=== PATIENT | female | born 1995 | race African-American/Black ===

== ENCOUNTER 2018-12-03 11:16 | Emergency (ER) | payer MEDICAID ==
[2018-12-03 11:55] LABS: #Basophils 0.1 thou/uL (0.0-0.2); #Eosinphils 0.3 thou/uL (0.0-0.7); #Lymphocytes 2.4 thou/uL (1.20-3.40); #Monocytes 0.6 thou/uL (0.11-0.59); #Neutrophils 6.5 thou/uL (1.40-6.50); %Basophils 0.8 % (0.0-1.0); %Eosinophils 2.9 % (0.0-10.0); %Lymphocytes 24.3 % (21.0-51.0); %Monocytes 5.9 % (0.0-10.0); Hemoglobin 11.6 g/dL (12.0-16.0); Mean Corpuscular Hemoglobin 25.8 pg (27.0-31.0); Mean Corpuscular Volume 75.8 fL (78.0-98.0); Mean Platelet Volume 9.8 fL (7.4-10.4); Platelet Count 197 thou/uL (130-400); RBC Distribution Width 13.5 % (11.5-14.5); White Blood Cell (WBC) Count 9.8 thou/uL (4.8-10.8)
[2018-12-03 11:57] LABS: Bilirubin Negative (Negative); Blood, Urine Negative (Negative); Clarity Clear (Clear); Glucose, Urine (Dipstick) Normal (Negative); Leukocyte 500 Leu/uL (Negative); Nitrite Negative (Negative); Pregnancy Test - Urine (BHCG) POSITIVE (Negative); Pregu Control Background? CLEAR/WHITE (CLR/WHITE); Pregu Control Bar Appear? YES (CONTROL BAR); Protein, Urine (Dipstick) Negative (Neg-Trace); Specific Gravity 1.015 (1.002-1.036); Urobilinogen Normal mg/dL (Less than 2)
[2018-12-03 11:58] LABS: Bacteria/HPF 1+ HPF (None Seen)
--- NOTE | 2018-12-03 13:26 | ULT ---
TRANSVAGINAL OBSTETRICAL ULTRASOUND: 12/03/18 INDICATION: History of positive . FINDINGS: There is a single live intrauterine gestation with cardiac activity noted at 116 beats per minute. Sm all yolk sac and pole is identified. The pole measures 0.58 cm giving an estimated gestat ional age of 6 weeks and 3 days. The mean sac diameter was 2.16 cm giving an estimated gestational ag e of 7 weeks and 1 day. Average gestational age is 6 weeks and 6 days. Estimated due date is 07/23/19. Clinical age is 7 weeks and 2 days. Estimated due date is 07/20/19. There is small suspected 8 mm subchorionic hemorrhage seen along the inferior and anterior aspect of the gestational sac that may reflect hemorrhage related to implantation. The left ovary measures 3.5 x 1.6 x 2.9 cm. The right ovary measures 4.4 x 3.2 x 3.8 cm. The uterus m easures 12.3 x 6.1 x 7.5 cm. There is a 2.6 cm cyst within the right ovary. IMPRESSION: 1. Single live intrauterine gestation of underdetermined viability. 2. Small subchorionic hemorrhage seen within the inferior anterior aspect of the gestational sac could be related to implantation. Continue clinical and sonographic follow-up is recommended. 3. Right ovarian cyst. POS: TPC
[2018-12-03] MEDS ORDERED: Acetaminophen 500 MG TAB ONE (13:31)
[2018-12-04 18:34] LABS: Chlamydia by PCR DETECTED (NotDetected); GC by PCR Not Detected (NotDetected)
== END 2018-12-03 14:41 | disposition home or self-care (01) ==
LOC: ERS 11:16
DX: O20.0 Threatened abortion (principal); O23.41 Unspecified infection of urinary tract in pregnancy, first trimester; Z3A.01 Less than 8 weeks gestation of pregnancy
CPT/HCPCS: 36415; 76856; 81003; 81015; 81025; 84702; 85025; 86850; 86900; 86901; 87480; 87491; 87510; 87591; 87660

== ENCOUNTER 2018-12-24 02:28 | Emergency (ER) | payer OTHER, SELFPAY ==
[2018-12-24] MEDS ORDERED: Ondansetron PF 4 MG/2 ML Vial ONE ×2 (02:52→03:58)
[2018-12-24] MEDS ORDERED: Morphine 4 MG/ML VIAL ONE ×2 (02:52→03:58)
[2018-12-24 03:29] LABS: #Basophils 0.1 thou/uL (0.0-0.2); #Eosinphils 0.5 thou/uL (0.0-0.7); #Lymphocytes 3.3 thou/uL (1.20-3.40); #Monocytes 0.9 thou/uL (0.11-0.59); #Neutrophils 9.2 thou/uL (1.40-6.50); %Basophils 0.9 % (0.0-1.0); %Eosinophils 3.7 % (0.0-10.0); %Lymphocytes 23.7 % (21.0-51.0); %Monocytes 6.2 % (0.0-10.0); %Neutrophils 65.6 % (42.0-75.0); Hemoglobin 11.8 g/dL (12.0-16.0); Mean Corpuscular Hemoglobin 25.5 pg (27.0-31.0); Mean Platelet Volume 9.6 fL (7.4-10.4); Platelet Count 208 thou/uL (130-400); RBC Distribution Width 13.4 % (11.5-14.5); Red Blood Cell (RBC) Count 4.64 mill/uL (4.20-5.40); White Blood Cell (WBC) Count 14.1 thou/uL (4.8-10.8)
[2018-12-24 03:51] LABS: ALT (SGPT) 8 U/L (8-55); AST (SGOT) 15 U/L (5-34); Albumin 3.9 g/dL (3.5-5.0); Alkaline Phosphatase 37 U/L (40-110); Anion Gap 14 mmol/L (10-20); BUN (Urea Nitrogen) 5 mg/dL (7.0-18.7); Bilirubin, Total 0.3 mg/dL (0.2-1.2); Calc. Creatinine Clearance 0 mL/min (70-130); Carbon Dioxide 18 mmol/L (22-29); Chloride 104 mmol/L (98-107); Estimated GFR-MDRD Greater than 90; Globulin 3.1 g/dL (2.4-3.5); Glucose 110 mg/dL (70-105); Lipase 24 U/L (8-78); Potassium 3.1 mmol/L (3.5-5.1); Sodium 133 mmol/L (136-145)
[2018-12-24 05:46] LABS: Bilirubin Negative (Negative); Blood, Urine Negative (Negative); Clarity Clear (Clear); Glucose, Urine (Dipstick) Normal (Negative); Leukocyte 25 Leu/uL (Negative); Nitrite Negative (Negative); Protein, Urine (Dipstick) 10 mg/dL (Neg-Trace); RBC/HPF 0-3 HPF (0-3); Urobilinogen Normal mg/dL (Less than 2)
[2018-12-24 05:47] LABS: Bacteria/HPF 1+ HPF (None Seen)
--- NOTE | 2018-12-24 07:13 | ULT ---
PRELIMINARY REPORT/[facility]/EMERGENCY AFTER HOURS PROCEDURE: PROCEDURE INFORMATION: Exam: US Abdomen Limited, Appendix Exam date and time: 12/24/2018 3:35 AM Clinical history: 23 years old, female; Nausea and vomiting; Abdominal pain; Localized; Right lower q uadrant (rlq); TECHNIQUE: Imaging protocol: Real-time ultrasound of the abdomen with image documentation. Examination was focus ed on the appendix. COMPARISON: US Gallbladder RUQ 12/24/2018 3:23 AM FINDINGS: Appendix: The appendix is not visible. Uterus: There is an intrauterine gestation. Gestation: The heart rate is 157 bpm. Ovaries: The right ovary measures 5.9 x 3.1 x 4.7 cm. It contains simple cysts measuring up to 2.4 x 2.3 x 2.6 cm. Arterial and venous flow is demonstrated in the right ovary by color and spectral Doppl er. IMPRESSION: 1. Appendix not identified. 2. Small cysts in the right ovary. 3. Live intrauterine gestation. Thank you for allowing us to participate in the care of your patient. Dictated and Authenticated by: Andreas Root MD 12/24/2018 4:47 AM Central Time ([place] & [place]) FINAL REPORT EMERGENCY AFTER HOURS LIMITED ABDOMEN ULTRASOUND: Date: 12/24/18 IMPRESSION: I agree with the preliminary report provided by [facility]. The appendix is not identified. A small cyst is seen within the right ovary. There is a single, live intrauterine gestation. POS:
--- NOTE | 2018-12-24 07:15 | ULT ---
PRELIMINARY REPORT/[facility]/EMERGENCY AFTER HOURS PROCEDURE: PROCEDURE INFORMATION: Exam: US Abdomen Limited, Right Upper Quadrant Exam date and time: 12/24/2018 3:23 AM Clinical history: 23 years old, female; Nausea and vomiting; Abdominal pain; Localized; Other: Ruq a nd rlq; Patient HX: 10 wks , abd pain, n/v TECHNIQUE: Imaging protocol: Real-time ultrasound of the abdomen with image documentation. Examination was focus ed on the right upper quadrant. COMPARISON: No relevant prior studies available. FINDINGS: Liver: The liver demonstrates a normal echotexture. Gallbladder: Negative Cuellar's sign was reported by the relations director. Common bile duct: The extrahepatic bile duct diameter is 4 mm. Pancreas: The visible portion of the pancreas is unremarkable. The pancreas is partially obscured by bowel gas. Right kidney: The right kidney measures 11.1 x 4.4 x 4.9 cm. Portal venous: Hepatopetal flow is demonstrated in the main portal vein. IMPRESSION: Unremarkable examination. Thank you for allowing us to participate in the care of your patient. Dictated and Authenticated by: Andreas Root MD 12/24/2018 4:37 AM Central Time ([place] & [place]) FINAL REPORT EMERGENCY AFTER HOURS GALLBLADDER ULTRASOUND: Date: 12/24/18 IMPRESSION: I agree with the preliminary report provided by [facility]. No acute sonographic abnormality is seen within the right upper quadrant. POS: DASH
--- NOTE | 2018-12-24 08:52 | MRI ---
MRI OF THE ABDOMEN WITHOUT IV CONTRAST: INDICATION: A 23-year-old female now with 10 week gestation with sudden onset of abdominal pain t hat began around 0150 hours this morning. The patient is having right lower quadrant pain now that b cait 30 minutes prior to the examination. FINDINGS: Comparisons are made with a limited abdominal ultrasound dated 12/24/2018 at 3:43 a.m. FINDINGS: There is a normal-sized appendix in the right lower quadrant of the abdomen measuring up to 4 mm. Th ere is mild free fluid within the right lower pericolonic gutter as well as within the cul-de-sac of [place]. There is a 3.4 cm cystic abnormality seen within the right ovary suspicious for a small corpus luteal cyst. There is diffuse increased T2 signal of the right ovary when compared to the left. The ovary measures 3.6 x 4.8 x 5.7 cm where the left ovary measures approximately 3.3 x 2.3 x 1.5 cm with norm al-appearing follicles. There was normal Doppler flow demonstrated on the limited abdominal ultrasou nd to the right ovary provided. No free fluid was grossly evident on that examination performed harono ier. There is a single intrauterine gestation. No lymphadenopathy is evident. Visualized aspects of the kidneys, spleen, and liver appear within normal limits. The visualized gallbladder is normal appeari ng. The visualized intrahepatic and extrahepatic ducts are normal-appearing. The visualized pancrea s is normal appearing. Visualized bone marrow signal intensity is normal appearing. IMPRESSION: 1. Normal appendix in the right lower quadrant of the abdomen. 2. Mild free fluid in the right lower quadrant of the abdomen and cul-de-sac. The right ovary is en larged and diffusely edematous with an associated suspected corpus luteal cyst measuring 3.4 cm. The ovary is much larger and edematous than compared to the left ovary. There was some documented flow seen on a limited abdominal ultrasound performed earlier at 3:40 a.m.; however, the extent of the toi e fluid in the right lower quadrant has increased from this prior exam. The patient reportedly start ed undergoing right lower quadrant abdominal pain 30 minutes prior to the MR procedure as per the MR fuel testing technician. The patient may be having episodic adnexal torsion that is much more evident on the MR e xamination than on the limited abdominal ultrasound performed earlier. Would recommend a repeat pelv ic ultrasound with repeat Doppler and duplex evaluation of the right ovary to evaluate for any additi onal signs of acute torsion. Findings were called to Dr. Moseley at 7:10 a.m. on 12/24/2018. 3. Single intrauterine gestation. POS: BH
--- NOTE | 2018-12-24 09:06 | ULT ---
TRANSVAGINAL PELVIC ULTRASOUND: INDICATION: Enlarged edematous ovary seen on an MRI examination dated 12/24/2018 at 6:27 a.m. with free fluid in t he right lower quadrant of the abdomen and pelvis that were not definitely seen on the limited abdomi nal ultrasound dated 12/24/2018. TECHNIQUE: Mills scale, color Doppler with spectral Doppler images were obtained of the pelvis via a transvaginal approach. The examination was compared to a limited abdominal ultrasound dated 12/24/2018, pelvic ul trasound dated 12/03/2018, 11/07/2012, and 09/30/2012. CT of the abdomen and pelvis was reviewed from 08/25. FINDINGS: As seen on the comparison MRI examination is an enlarged edematous-appearing right ovary measuring 4. 7 x 3.9 x 4.6 cm with an eccentric mildly complex cyst measuring approximately 3.7 cm suspicious for an involuting corpus luteal cyst. There is documented arterial and venous waveforms within the right ovary; however, on power Doppler, the ovary appears diffusely hyperemic. The left ovary has a normal sonographic appearance measuring 3.0 x 1.8 x 3.5 cm. Within the uterus is a single live intrauterine gestation without evidence of a subchorionic hemorrha ge. Yolk sac is identified measuring 6 mm. The average gestational age based on the crown-rump steff th and gestational sac size is 9 weeks 3 days with estimated due date of 07/26/2019. Clinical age is 10 weeks and 2 days estimated due date of 07/20/2019. The crown-rump length measured 3.12 cm giving e stimated gestational age of 10 weeks and 0 days. The gestational sac diameter was 3.64 cm giving an estimated gestational age of 8 weeks and 6 days. Cardiac activity was noted at 101 b.p.m. The uterus measured 12.2 x 8.1 x 9.3 cm. A small amount of free fluid is seen within the cul-de-sac and right lower quadrant of the abdomen. IMPRESSION: 1. Single live intrauterine gestation with size and dates as above. 2. Enlarged hyperemic right ovary with diffuse edematous change. There is mild free fluid in the cu l-de-sac as well as within the right lower quadrant of the abdomen. Findings may reflect a detorsed right ovary with prominent edema. Idiopathic asymmetric ovarian edema which is often related to pelv ic vascular congestion can effect the ovary, particularly the right. Continued clinical and ultrasou nd followup is recommended. 3. Normal appearance to the left ovary. POS: OFF
--- NOTE | 2018-12-24 10:29 | CON ---
DATE OF CONSULTATION: 12/24/2018 TIME OF CONSULT REQUEST: 919. TIME THE PATIENT WAS SEEN: 934. LOCATION: Bed 2 in the ER. REASON FOR CONSULTATION: Suspected right ovarian mass/cyst/rule out torsion. HISTORY OF PRESENT ILLNESS: In brief, this is a 23-year-old female, 4, para 1, with 1 SAB and 1 EAB, who is at 10 weeks and 2 days by an EDC of July 19 by December 06 ultrasound. She states that she arrived to the ER around 0230, but we were notified at 0920. This patient states that as she was sleeping, she had a sharp abdominal pain, which persisted. She does have nausea and vomiting associated with it, but she has had nausea and vomiting since she is in the first trimester of . She denies dysuria/ symptoms, constipation, or other GI episodes. She has no fever. She has no vaginal bleeding. Last intercourse was about 2 days ago. Because of the sharp and acute nature of the pain, she came into the emergency room. REVIEW OF SYSTEMS: Complete review of systems was checked and is otherwise negative unless specified in the HPI. PAST MEDICAL HISTORY: Negative. ALLERGIES: NONE. MEDICATIONS: None. SOCIAL HISTORY: She has a past history of marijuana use, but states that she has not had any since becoming . She denies any amphetamine or other illicit substance use. PAST SURGICAL HISTORY: D and C, which she had for an elective AB. OB HISTORY: She has had a vaginal delivery in 2013. PHYSICAL EXAMINATION: VITAL SIGNS: Her blood pressure is 119/60 and her pulse is 99. O2 saturation is normal on room air at greater than 96%. GENERAL: Clinically, she is in no acute distress. She appears comfortable and is lying in bed. ABDOMEN: Soft and Nontender PELVIC: Deferred as there is no evidence of vaginal bleeding or threatened miscarriage. RADIOLOGICAL FINDINGS: The patient had an ultrasound done/pelvic during this evaluation, which showed a slightly enlarged right ovary at about 3 x 4 cm that had some "edema." It did have flow seen and there was a small amount of pelvic fluid. ASSESSMENT: This is a multigravida in the 1st trimester (10 weeks 2 days) with abdominal pain, not otherwise specified. If this ovarian mass is a corpus luteum, it is advised to leave the corpus luteum in place as it is providing support. PLAN: 1. I discussed with the patient the finding and the possibility (low probability ) of adnexal torsion. As the patient is clinically stable, although I did offer her inpatient observation, she elected to be watched as an outpatient and will return if symptoms recur. She has the next appointment in about 2 weeks with a clinic. 2. Based on the patient's clinical assessment and her EGA, nonsurgical intervention seems to be the best management point at this time as she is clinically stable and in no acute distress. I did review with her in detail the possibility of blood flow being altered to the adnexa on the right and she voiced understanding. Because she is clinically well and blood flow was seen on ultrasound, my index of suspicion for torsion is low at this time. Job ID: [id number] [facility]
== END 2018-12-24 10:10 | disposition home or self-care (01) ==
LOC: ERS 02:28
DX: O99.89 Other specified diseases and conditions complicating pregnancy, childbirth and the puerperium (principal); N83.9 Noninflammatory disorder of ovary, fallopian tube and broad ligament, unspecified; Z3A.10 10 weeks gestation of pregnancy
CPT/HCPCS: 36415; 74181; 76705; 76856; 80053; 81003; 81015; 83690; 85025; 96374; 96375; 96376; J2270; J2405

== ENCOUNTER 2023-03-12 05:07 | Emergency (ER) | payer OTHER, SELFPAY | END 2023-03-12 05:39 | disposition home or self-care (01) | LOC: ERS 05:07 | DX: K64.4 Residual hemorrhoidal skin tags (principal) | CPT/HCPCS: 99283 ==